=== PATIENT | male | born 2000 | race African-American/Black ===

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

== ENCOUNTER 2020-01-13 10:44 | Outpatient (CLI) | payer OTHER ==
[2020-01-13 14:08] LABS: PLATELET COUNT 299 K/uL (142-355)
== END 2020-01-13 13:00 ==
LOC: LABW 10:44
PROVIDERS: ATTEND Family Medicine
DX: R10.9 Unspecified abdominal pain (principal); R63.0 Anorexia; H66.93 Otitis media, unspecified, bilateral; F32.9 Major depressive disorder, single episode, unspecified
CPT/HCPCS: 36415; 80053; 81000; 84439; 84443; 85027

== ENCOUNTER 2021-12-10 11:27 | Outpatient (CLI) | payer OTHER | END 2021-12-10 19:16 | disposition home or self-care (01) | LOC: RAD 11:27 | PROVIDERS: ATTEND Family Medicine | DX: R05.9 Cough, unspecified (principal); R63.4 Abnormal weight loss; R63.0 Anorexia ==

== ENCOUNTER 2022-04-20 16:40 | Observation (INO) | payer OTHER ==
[~2022-04-20] VITALS: Ht 157.5 cm; Wt 44.2 kg
[2022-04-20 18:00] VITALS: BP 126/75; TEMP 98; Ht 157.5 cm; Wt 44.2 kg
[2022-04-20 18:01] LABS: PLATELET COUNT 341 K/uL (142-355)
[2022-04-20 19:56] VITALS: BP 107/64; TEMP 98.5
[2022-04-20 23:54] VITALS: BP 104/61; TEMP 98.5
[2022-04-21 03:51] VITALS: BP 95/55; TEMP 98.4
[2022-04-21 08:00] VITALS: BP 92/61; TEMP 98
[2022-04-21 12:00] VITALS: BP 121/80; TEMP 98.6
[2022-04-21 14:18] LABS: POTASSIUM 3.2 mmol/L (3.6-5.2)
[2022-04-21 16:00] VITALS: BP 126/83; TEMP 98.3
[2022-04-21 20:00] VITALS: BP 113/71; TEMP 99.3
[2022-04-21 23:58] VITALS: BP 117/85; TEMP 98.8
[2022-04-22 04:27] VITALS: BP 111/71; TEMP 97.6
[2022-04-22 08:27] VITALS: BP 105/60; TEMP 97.8
[2022-04-22 12:00] VITALS: BP 121/86; TEMP 98.1
== END 2022-04-22 15:40 | disposition home or self-care (01) ==
LOC: MED/SURG 16:40
PROVIDERS: ADMIT Family Medicine; ATTEND Family Medicine
DX: E86.0 Dehydration (principal); E87.6 Hypokalemia; R63.0 Anorexia; H66.93 Otitis media, unspecified, bilateral; K59.09 Other constipation; F41.8 Other specified anxiety disorders; B34.9 Viral infection, unspecified; R45.84 Anhedonia
CPT/HCPCS: 80053; 81000; 84443; 85027; 87635; 96360; 96361; 96365; 96367; 96374; 96375; 99220; G0378; G0379; J0696; J3490; U0003